=== PATIENT | female | born 1950 | race Caucasian/White ===

== ENCOUNTER 2020-03-15 11:33 | Inpatient (IN) | payer OTHER ==
[~2020-03-15] VITALS: Ht 157.5 cm; Wt 55.3 kg
[2020-03-15 11:45] VITALS: Ht 157.5 cm; Wt 55.3 kg
[2020-03-15 12:17] LABS: BASOPHIL % 0.1 % (0-2); PLATELET COUNT 367 x10^3mcL (130-400); RED CELL DISTRIBUTION WIDTH 13.8 % (11.5-14.5)
[2020-03-15 13:04] LABS: CALCIUM 8.6 mg/dL (8.5-10.1); CARBON DIOXIDE 27.2 mmol/L (21-32); CHLORIDE SERUM 97 mmol/L (98-107); CREATININE SERUM 0.9 mg/dL (0.6-1.0); GFR1 > 60 mL/min; GLUCOSE SERUM 108 mg/dL (74-106); POTASSIUM SERUM 3.8 mmol/L (3.5-5.1); SODIUM SERUM 132 mmol/L (136-145)
[2020-03-15 13:08] LABS: ALKALINE PHOSPHATASE 123 U/L (46-116); ALT/SGPT 32 U/L (14-59); AST/SGOT 35 U/L (15-37); BILIRUBIN TOTAL 0.3 mg/dL (0.20-1.00); LIPASE 200 IU/L (73-393); TOTAL PROTEIN, SERUM 7.6 g/dL (6.4-8.2)
[2020-03-15 13:14] LABS: ALBUMIN 3.3 g/dL (3.4-5.0)
[2020-03-15 14:43] LABS: CHOLESTEROL 161 mg/dL (<200); HDL CHOLESTEROL 41 mg/dL (40-60)
[2020-03-15 15:00] LABS: microscopic required? YES; urine erythrocyte NEGATIVE (NEGATIVE)
[2020-03-15 15:34] LABS: AMPHETAMINE QUAL UR NONE DETECTED (See below)
[2020-03-15] MEDS ORDERED: TOPROL XL25 MG (18:08)
[2020-03-15] MEDS ORDERED: DULCOLAX STOOL100 M1 (18:09)
[2020-03-15] MEDS ORDERED: POTASSIUM CHLOR8 MEQ (18:09)
[2020-03-15 19:04] VITALS: BP 139/77
[2020-03-15 20:10] VITALS: BP 139/65
[2020-03-16 05:41] VITALS: BP 126/54
[2020-03-16 08:15] VITALS: BP 123/56
[2020-03-16 12:50] VITALS: BP 119/54
[2020-03-16 16:21] VITALS: BP 156/71
[2020-03-16 20:50] VITALS: BP 146/64
[2020-03-17 04:30] VITALS: BP 121/49
[2020-03-17 07:30] LABS: CALCIUM 8.1 mg/dL (8.5-10.1); CHLORIDE SERUM 103 mmol/L (98-107); CREATININE SERUM 0.8 mg/dL (0.6-1.0); GFR1 > 60 mL/min; GLUCOSE SERUM 91 mg/dL (74-106); MAGNESIUM 1.9 mg/dL (1.8-2.4); PHOSPHOROUS 2.6 mg/dL (2.5-4.9); POTASSIUM SERUM 3.8 mmol/L (3.5-5.1); SODIUM SERUM 134 mmol/L (136-145)
[2020-03-17 07:52] LABS: BASOPHIL % 0.6 % (0-2); PLATELET COUNT 294 x10^3mcL (130-400); RED CELL DISTRIBUTION WIDTH 13.8 % (11.5-14.5)
[2020-03-17 08:06] LABS: ALPHA FETOPROTEIN TUMOR MARKER 1.9 ng/mL (0.0-8.3)
[2020-03-17 08:47] VITALS: BP 146/73
[2020-03-17 17:29] VITALS: BP 154/56
[2020-03-17 21:15] VITALS: BP 166/67
[2020-03-17 22:51] VITALS: BP 132/69
[2020-03-18 06:13] VITALS: BP 152/62
[2020-03-18 06:32] LABS: BASOPHIL % 0.5 % (0-2); PLATELET COUNT 328 x10^3mcL (130-400); RED CELL DISTRIBUTION WIDTH 13.9 % (11.5-14.5)
[2020-03-18 06:38] LABS: CALCIUM 8.3 mg/dL (8.5-10.1); CARBON DIOXIDE 28.7 mmol/L (21-32); CHLORIDE SERUM 100 mmol/L (98-107); CREATININE SERUM 0.9 mg/dL (0.6-1.0); GFR1 > 60 mL/min; GLUCOSE SERUM 87 mg/dL (74-106); MAGNESIUM 1.8 mg/dL (1.8-2.4); PHOSPHOROUS 3.3 mg/dL (2.5-4.9); POTASSIUM SERUM 3.7 mmol/L (3.5-5.1); SODIUM SERUM 133 mmol/L (136-145)
[2020-03-18 08:53] VITALS: BP 154/69
[2020-03-18 21:19] VITALS: BP 148/67
[2020-03-19 05:51] VITALS: BP 158/71
[2020-03-19 06:43] LABS: CALCIUM 8.8 mg/dL (8.5-10.1); CARBON DIOXIDE 29.6 mmol/L (21-32); CHLORIDE SERUM 99 mmol/L (98-107); CREATININE SERUM 0.8 mg/dL (0.6-1.0); GFR1 > 60 mL/min; GLUCOSE SERUM 84 mg/dL (74-106); MAGNESIUM 1.6 mg/dL (1.8-2.4); PHOSPHOROUS 3.5 mg/dL (2.5-4.9); POTASSIUM SERUM 3.7 mmol/L (3.5-5.1); SODIUM SERUM 134 mmol/L (136-145)
[2020-03-19 06:49] LABS: BASOPHIL % 0.6 % (0-2); PLATELET COUNT 332 x10^3mcL (130-400)
[2020-03-19 09:49] VITALS: BP 129/52
[2020-03-19 13:23] VITALS: BP 157/78
[2020-03-19 16:05] VITALS: BP 157/78
[2020-03-19 16:24] VITALS: BP 158/56
== END 2020-03-19 18:10 | disposition home or self-care (01) | DRG 375 ==
LOC: ED 11:33 → MU 16:56
PROVIDERS: Emergency Medicine; Internal Medicine; ADMIT Family Medicine; ATTEND Family Medicine
PROC: 0WBH3ZX Excision of Retroperitoneum, Percutaneous Approach, Diagnostic (ICD-10-PCS; principal; 2020-03-19)
DX: C78.6 Secondary malignant neoplasm of retroperitoneum and peritoneum (principal); K57.92 Diverticulitis of intestine, part unspecified, without perforation or abscess without bleeding; R18.8 Other ascites; J90 Pleural effusion, not elsewhere classified; Z20.828 Contact with and (suspected) exposure to other viral communicable diseases; I10 Essential (primary) hypertension; Z83.3 Family history of diabetes mellitus; Z82.49 Family history of ischemic heart disease and other diseases of the circulatory system; C54.1 Malignant neoplasm of endometrium
CPT/HCPCS: 49180; 83880; 88344; 90732; C1894; G0378; J0696; J2001; J2270; J2405; J3010; J3490; J7040; Q0092; Q9967; U0003-CS

== ENCOUNTER 2020-03-25 00:20 | Emergency (ER) | payer OTHER ==
[~2020-03-25] VITALS: Ht 165.1 cm; Wt 61.7 kg
[~2020-03-25 00:20] MED LIST: DULCOLAX STOOL100 M1; POTASSIUM CHLOR8 MEQ; TOPROL XL25 MG
[2020-03-25 00:37] VITALS: Ht 165.1 cm; Wt 61.7 kg
[2020-03-25 02:50] VITALS: BP 154/69
== END 2020-03-25 02:50 | disposition home or self-care (01) ==
LOC: ED 00:20
DX: R10.9 Unspecified abdominal pain (principal); I10 Essential (primary) hypertension; Z87.11 Personal history of peptic ulcer disease

== ENCOUNTER 2020-03-26 18:36 | Emergency (ER) | payer OTHER ==
[~2020-03-26] VITALS: Ht 157.5 cm; Wt 60.8 kg
[2020-03-26 18:47] VITALS: Ht 157.5 cm; Wt 60.8 kg
[2020-03-26 20:12] LABS: BASOPHIL % 0.4 % (0-2); PLATELET COUNT 383 x10^3mcL (130-400); RED CELL DISTRIBUTION WIDTH 14.5 % (11.5-14.5)
[2020-03-26 20:23] LABS: CALCIUM 9.1 mg/dL (8.5-10.1); CARBON DIOXIDE 18.4 mmol/L (21-32); CREATININE SERUM 1.1 mg/dL (0.6-1.0); POTASSIUM SERUM 4.2 mmol/L (3.5-5.1)
[2020-03-26 20:28] LABS: BILIRUBIN TOTAL 0.5 mg/dL (0.20-1.00); TOTAL PROTEIN, SERUM 7.5 g/dL (6.4-8.2)
[2020-03-26 20:29] LABS: ALBUMIN 3.1 g/dL (3.4-5.0)
[2020-03-26 22:14] VITALS: BP 152/65
== END 2020-03-26 22:14 | disposition home or self-care (01) ==
LOC: ED 18:36
PROVIDERS: Emergency Medicine
DX: R10.9 Unspecified abdominal pain (principal); C80.0 Disseminated malignant neoplasm, unspecified; F41.9 Anxiety disorder, unspecified; I10 Essential (primary) hypertension; Z87.11 Personal history of peptic ulcer disease
CPT/HCPCS: Q0092

== ENCOUNTER 2020-04-15 15:14 | Emergency (ER) | payer OTHER ==
[~2020-04-15] VITALS: Ht 157.5 cm; Wt 60.8 kg
[2020-04-15 15:41] VITALS: Ht 157.5 cm; Wt 60.8 kg
[2020-04-15 17:17] VITALS: BP 160/82
== END 2020-04-15 17:17 | disposition home or self-care (01) ==
LOC: ED 15:14
DX: K59.00 Constipation, unspecified (principal); I10 Essential (primary) hypertension; Z87.42 Personal history of other diseases of the female genital tract; Z87.11 Personal history of peptic ulcer disease
CPT/HCPCS: Q0092

== ENCOUNTER 2020-04-17 14:53 | Emergency (ER) | payer OTHER ==
[~2020-04-17] VITALS: Ht 157.5 cm; Wt 59.9 kg
[~2020-04-17 14:53] MED LIST changes: -TOPROL XL25 MG; +TOPROL XL25 MG PO
[2020-04-17 15:07] VITALS: Ht 157.5 cm; Wt 59.9 kg
[2020-04-17 15:49] LABS: microscopic required? YES; urine erythrocyte NEGATIVE (NEGATIVE)
[2020-04-17 16:15] LABS: BASOPHIL % 0.3 % (0-2)
[2020-04-17 16:20] LABS: PLATELET COUNT 523 x10^3mcL (130-400); RED CELL DISTRIBUTION WIDTH 15.3 % (11.5-14.5)
[2020-04-17 16:24] LABS: CALCIUM 8.8 mg/dL (8.5-10.1); CREATININE SERUM 1.4 mg/dL (0.6-1.0); POTASSIUM SERUM 3.7 mmol/L (3.5-5.1)
[2020-04-17 19:00] VITALS: BP 168/74
[2020-04-19] MEDS ORDERED: LORCET1 TAB PR (22:00)
[2020-04-19] MEDS ORDERED: AMITIZA24 MC1 PO (22:01)
[2020-04-19] MEDS ORDERED: COZAAR100 MG PO (22:02)
[2020-04-19] MEDS ORDERED: ACID REDUCER20 MG PO (22:03)
[2020-04-19] MEDS ORDERED: CIPRO500 MG PO (22:04)
[2020-04-19] MEDS ORDERED: ZOF4 SL (22:05)
== END 2020-04-17 19:00 | disposition home or self-care (01) ==
LOC: ED 14:53
PROVIDERS: Emergency Medicine
DX: N39.0 Urinary tract infection, site not specified (principal); K62.5 Hemorrhage of anus and rectum; I10 Essential (primary) hypertension; Z87.11 Personal history of peptic ulcer disease

== ENCOUNTER 2020-04-28 19:02 | Emergency (ER) | payer OTHER ==
[~2020-04-28] VITALS: Ht 157.5 cm; Wt 58.5 kg
[~2020-04-28 19:02] MED LIST changes: +ACID REDUCER20 MG PO; +AMITIZA24 MC1 PO; +CIPRO500 MG PO; +COZAAR100 MG PO; +LORCET1 TAB PR; +ZOF4 SL
[2020-04-28 19:10] VITALS: Ht 157.5 cm; Wt 58.5 kg
[2020-04-28] MEDS ORDERED: ALPRAZOLAM XR0.5 M2 PO (19:27)
[2020-04-28] MEDS ORDERED: ALENDRONATE SOD70 M3 PO (19:28)
[2020-04-28 21:03] VITALS: BP 135/55
== END 2020-04-28 21:03 | disposition home or self-care (01) ==
LOC: ED 19:02
DX: E86.0 Dehydration (principal)
CPT/HCPCS: J7030